=== PATIENT | female | born 1965 ===

== ENCOUNTER 2020-06-06 10:42 | Emergency (ER) | payer BC ==
[~2020-06-06] VITALS: Ht 160 cm; Wt 72.0 kg
[2020-06-06 11:25] LABS: BASOPHILS # (AUTO) 0.02 x10^3/uL (0-0.1); BASOPHILS % (AUTO) 0 % (0-1); EOSINOPHILS % (AUTO) 1 % (1-7); LYMPHOCYTES # (AUTO) 0.85 x10^3/uL (1-3.4); LYMPHOCYTES % (AUTO) 11 % (22-44); MD NO; MEAN CORPUSCULAR HEMOGLOBIN 30.8 pg (27.0-34.8); MEAN CORPUSCULAR HGB CONC 33.3 g/dL (32.4-35.8); MEAN CORPUSCULAR VOLUME 92.4 fL (80-100); MEAN PLATELET VOLUME 7.1 fL (7.4-10.4); MONOCYTES # (AUTO) 0.63 x10^3/uL (0.2-0.8); MONOCYTES % (AUTO) 8 % (2-9); NEUTROPHILS # (AUTO) 6.06 x10^3/uL (1.8-6.8); NEUTROPHILS % (AUTO) 79 % (42-75); PLATELET COUNT 314 x10^3/uL (130-400); RED BLOOD COUNT 4.79 x10^6/uL (3.82-5.3); RED CELL DISTRIBUTION WIDTH 14.1 % (9.6-15.2)
[2020-06-06] MEDS ORDERED: CEFTRIAXONE PMX 1GM/50ML 50 ML IV ONE (11:30)
[2020-06-06] MEDS ORDERED: AZITHROMYCIN 500 MG TABLET PO ONE (11:30)
[2020-06-06 11:36] LABS: ALBUMIN 3.4 g/dL (3.4-5.0); ANION GAP 6 mmol/L (5-15); CALCIUM 9.8 mg/dL (8.5-10.1); CHLORIDE 108 mmol/L (98-107)
[2020-06-06] MEDS ORDERED: AZITHROMYCIN 500 MG TABLET ONE (11:36)
[2020-06-06] MEDS ORDERED: LIDOCAINE-MPF 1%, 2ML ONE (11:36)
[2020-06-06] MEDS ORDERED: MAALOX/HYOSCYAMINE/LIDOCAINE 45 ML BTL ONE (11:37)
[2020-06-06] MEDS ORDERED: CEFTRIAXONE 1,000 MG ONE (11:37)
[2020-06-06 11:40] LABS: ALANINE AMINOTRANSFERASE 71 U/L (12-78); ALKALINE PHOSPHATASE 130 U/L (45-117); BILIRUBIN,TOTAL 0.3 mg/dL (0.2-1.0); CREATININE 0.79 mg/dL (0.55-1.02); TOTAL PROTEIN 7.9 g/dL (6.4-8.2)
[2020-06-06 11:52] VITALS: BP 124/69
[2020-06-06] MEDS ORDERED: CEFTRIAXONE 1,000 MG IM ONE (12:00)
[2020-06-06] MEDS ORDERED: MAALOX/HYOSCYAMINE/LIDOCAINE 45 ML BTL PO ONE (12:00)
== END 2020-06-06 13:09 | disposition home or self-care (01) ==
LOC: ED 11:22
DX: R07.89 Other chest pain (principal); J18.9 Pneumonia, unspecified organism
CPT/HCPCS: 36415; 71045; 80053; 85025; 93005; 96372; 99285; J0696